=== PATIENT | male | born 1985 | race African-American/Black ===

== ENCOUNTER 2021-01-08 15:18 | Emergency (ER) | payer OTHER ==
[~2021-01-08] VITALS: Ht 180.3 cm; Wt 127.5 kg
[2021-01-08 15:20] VITALS: BP 142/101
[2021-01-08] MEDS ORDERED: CLONIDINE HCL0.1 M1 PO (15:27)
== END 2021-01-08 15:46 | disposition home or self-care (01) ==
LOC: M.ERS 15:18
DX: F10.10 Alcohol abuse, uncomplicated (principal); Z79.899 Other long term (current) drug therapy